=== PATIENT | female | born 1955 | race Two or more races ===

== ENCOUNTER 2016-12-12 17:39 | Emergency (ER) | payer OTHER ==
[~2016-12-12] VITALS: Ht 162.6 cm; Wt 78.5 kg
[~2016-12-12 17:39] MED LIST: ASPI81TA3 GTB; CARV25TA79 PO; CHOL400T10 PO; CLOP75TA27 PO; DOXY-220 PO; METF500T4 PO; PRAV40TA76 PO; SACC250C PO; TRAM50TA2 PO; VALS160T20 PO
[2016-12-12 17:42] VITALS: Ht 162.6 cm; Wt 78.5 kg
[2016-12-12] MEDS ORDERED: CLINDAMYCIN 300 MG INJ IM ONE (20:00)
[2016-12-12] MEDS ORDERED: SULF1TAB31 PO (20:18)
[2016-12-12] MEDS ORDERED: CEPH-443 PO (20:18)
[2016-12-12 20:25] VITALS: BP 141/80; RESP 18
--- NOTE | 2016-12-12 20:38 | ERD ---
ER Documentation Chief Complaint Date/Time DATE: 12/12/16 TIME: 20:32 Chief Complaint LT ARM REDNESS , RASH HPI This a 61-year-old female who presents the emergency department today with her daughter complaining of some left arm redness that started this morning. Patient has a history of a mastectomy on her left side. Patient states she has had 2 infections in her arm in the past and did have to stay in the hospital one time. Daughter states that mother had recently also used some new body wash yesterday and also had been using some acetone on her fingers while changing her nail macanese. Denies any fevers or chills. Denies any chest pain or shortness of breath. Denies any itching. ROS All systems reviewed and are negative except as per history of present illness. Medications Home Meds Active Scripts Sulfamethoxazole/Trimethoprim* (Bactrim Ds* Tablet) 1 Each Tablet, 1 TAB PO BID for 7 Days, #14 TAB Prov:MARIAH HILL PA-C 12/12/16 Cephalexin* (Keflex*) 500 Mg Capsule, 500 MG PO QID for 7 Days, CAP Prov:MARIAH HILL PA-C 12/12/16 Tramadol HCl (Tramadol HCl) 50 Mg Tablet, 50 MG PO Q6H Y for PAIN, #20 TAB Prov:NORMA DONOVAN 04/03/16 Saccharomyces Boulardii* (Florastor*) 250 Mg Cap, 250 MG PO BID for 8 Days, CAP Prov:NORMA DONOVAN 04/03/16 Doxycycline Monohydrate* (Doxycycline Monohydrate*) 100 Mg Tablet, 100 MG PO BID for 8 Days, TAB Prov:NORMA DONOVAN 04/03/16 Reported Medications Cholecalciferol* (Vitamin D*) 400 Unit Tablet, 200 UNIT PO DAILY, TAB 02/08/15 Valsartan* (Diovan*) 160 Mg Tablet, 160 MG PO DAILY, TAB 09/01/14 Pravastatin Sodium* (Pravastatin Sodium*) 40 Mg Tablet, 40 MG PO DAILY 01/30/13 Clopidogrel Bisulfate (Clopidogrel) 75 Mg Tablet, 75 MG PO DAILY 01/30/13 Carvedilol* (Carvedilol*) 25 Mg Tablet, 25 MG PO BID 01/30/13 Metformin Hcl* (Metformin Hcl*) 500 Mg Tablet, 500 MG PO BID 01/30/13 Aspirin (Aspirin) 81 Mg Chew, 81 MG GTB DAILY 01/30/13 Allergies Allergies: Coded Allergies: No Known Allergy (Unverified , 04/02/16) PMhx/Soc History of Surgery: Yes (LEFT MASTECTOMY, STOMA) Anesthesia Reaction: No Hx Neurological Disorder: No Hx Respiratory Disorders: No Hx Cardiac Disorders: Yes (cardiac stentsX2, HTN, HYPERLIPEDEMIA) Hx Psychiatric Problems: No Hx Miscellaneous Medical Probl: Yes (BREAST CA, RECTAL CA, DM) Hx Alcohol Use: No Hx Substance Use: No Hx Tobacco Use: Yes (STOPPED 1 YEAR AGO) Smoking Status: Former smoker Physical Exam Vitals Vital Signs Date Time Temp Pulse Resp B/P Pulse Ox O2 Delivery O2 Flow Rate FiO2 12/12/16 20:25 18 141/80 98 12/12/16 17:42 99.0 86 18 141/80 98 Physical Exam Const: Nontoxic-appearing Head: Atraumatic Eyes: Normal Conjunctiva ENT: Normal External Ears, Nose and Mouth. Neck: Full range of motion..~ No meningismus. Resp: Clear to auscultation bilaterally. No absent breath sounds. No wheezing Cardio: Regular rate and rhythm, no murmurs Abd: Soft, non tender, non distended. Normal bowel sounds Skin: Localized cellulitis left arm between elbow and wrist. Back: No midline or flank tenderness Ext: Localized edema left arm with evidence of cellulitis between elbow and wrist. Full active range of motion elbow and wrist. Pulses 2+. Distal neurovascularly intact. Neur: Awake and alert Psych: Normal Mood and Affect Results 24 hrs Current Medications Medications (Trade) Dose Ordered Sig/Selam Route PRN Reason Start Time Stop Time Status Last Admin Dose Admin Clindamycin Phosphate (Cleocin) 600 mg ONCE ONCE IM 12/12/16 20:00 12/12/16 20:01 DC 12/12/16 20:07 Procedures/MDM This a 7-year-old female who presents to the emergency department today for some left arm redness that started today. Daughter had indicated that the mother used a new body wash yesterday and developed redness today. Patient denied any itching and I have lower suspicion that this is an allergic reaction given the area of redness is localized to the lower part of the left arm. Low suspicion for urticaria. Patient has twice been to the emergency department for cellulitis of her left arm and I feel that her physical exam is most consistent with that. Patient was admitted once in April 2016 however patient had a fever at that time and a mildly elevated white blood cell count. Today patient is afebrile and otherwise well-appearing. Patient has a history of a mastectomy on the left side however patient has good pulses and she denies any chest pain or shortness of breath and I have lower suspicion for DVT. Patient is not tachycardic and she is not septic. Patient is a diabetic however I do not feel that laboratory workup is required at this time. Patient symptoms at this time is consistent with cellulitis. Low suspicion for sepsis, deep space bacterial infection, SJS, meningitis. Patient was given IM Clinda here in the emergency department and discharged home with Bactrim and Keflex. Patient and daughter were given strict return precautions for any worsening of symptoms, increased redness or development of fevers. Patient was instructed to return in 48 hours for a wound check. At this time the patient is stable for discharge and outpatient management. Patient should follow up with their PCP in the next 1-2 days. They may return to the emergency department sooner for any persistent or worsening of symptoms. Patient and daughter understood and agreed with the plan. Departure Diagnosis: Primary Impression: Cellulitis Site of cellulitis: extremity Site of cellulitis of extremity: upper extremity Laterality: left Qualified Code: L03.114 - Cellulitis of left upper extremity Condition: Fair Patient Instructions: Cellulitis Additional Instructions: Call your primary care doctor TOMORROW for an appointment during the next 1-2 days.See the doctor sooner or return here if your condition worsens before your appointment time. Wound check in 48 hour Take antibiotics as prescribed MARIAH HILL PA-C December 12, 2016 20:38
== END 2016-12-12 20:27 | disposition home or self-care (01) ==
LOC: FTE 17:39
DX: L03.114 Cellulitis of left upper limb (principal); I10 Essential (primary) hypertension; E11.9 Type 2 diabetes mellitus without complications; Z79.82 Long term (current) use of aspirin; Z79.84 Long term (current) use of oral hypoglycemic drugs; Z85.048 Personal history of other malignant neoplasm of rectum, rectosigmoid junction, and anus; Z98.61 Coronary angioplasty status; Z85.3 Personal history of malignant neoplasm of breast; Z87.891 Personal history of nicotine dependence
CPT/HCPCS: 96372; Z7502; Z7610